=== PATIENT | male | born 1950 | race Caucasian/White ===

== ENCOUNTER 2017-01-28 11:12 | Emergency (ER) | payer OTHER ==
[2017-01-28] VITALS (8 sets, daily range): BP systolic 191–233; BP diastolic 76–108; PULSE 54–60; RESP 17–20; O2SAT 96–100
[2017-01-28] MEDS ORDERED: SODIUM CHLOR 0.9% 1000 ML INJ 1,000 ML IV SCH (11:31)
[2017-01-28] MEDS ORDERED: ONDANSETRON HCL 4 MG/2 ML VIAL IVP ONE (11:45)
[2017-01-28] MEDS ORDERED: MORPHINE SULFATE 4 MG/ML INJ IV PUSH ONE (11:45)
[2017-01-28 11:58] LABS: AUTOMATED NEUTROPHIL # 6.2 TH/MM3 (1.8-7.7); BASOPHIL % 0.6 % (0.0-2.0); EOSINOPHIL % 0.6 % (0.0-4.0); HEMATOCRIT 41.8 % (39.0-51.0); HEMO FLAGS DIFF FINAL; LYMPH % 11.2 % (9.0-44.0); LYMPHOCYTE # 0.8 TH/MM3 (1.0-4.8); MEAN CELL VOLUME 94.8 FL (80.0-100.0); MEAN CORPUSCULAR HEMOGLOBIN 33.2 PG (27.0-34.0); MONO % 5.8 % (0.0-8.0); NEUT % 81.8 % (16.0-70.0); PLATELET COUNT 220 TH/MM3 (150-450); RED BLOOD COUNT 4.41 MIL/MM3 (4.50-5.90); RED CELL DISTRIBUTION WIDTH 14.1 % (11.6-17.2); WHITE BLOOD COUNT 7.6 TH/MM3 (4.0-11.0)
[2017-01-28] MEDS ORDERED: MORPHINE SULFATE 8 MG/ML INJ IV PUSH ONE (12:00)
[2017-01-28 12:06] LABS: APTT (PATIENT) 22.6 SEC (24.3-30.1); PROTHROMBIN TIME - PATIENT 11.2 SEC (9.8-11.6)
--- NOTE | 2017-01-28 12:17 | PD ---
HPI Chief Complaint: Abdominal Pain Time Seen by Provider: 12:12 Travel History International Travel<30 days: No Contact w/Intl Traveler<30days: No Traveled to known affect area: No History of Present Illness HPI 66-year-old male that presents to the ED for evaluation of lower abdominal pain. Patient has had this pain since yesterday. Per patient she has a history of what appears to be diverticulosis and he is concerned he might have diverticulitis. Per patient the pain wasn't too severe until this morning when the pain got really severe 10 out of 10 to the point where he had diaphoresis and was shaking. This is what made him call the ambulance. On his way here patient felt better and his pain now is 5 out of 10. He denies any chest pain or shortness of breath. He said that he's had some nausea and vomiting and yesterday he had some diarrhea but today he has not had a bowel movement. No blood. No recent travel. No falls or injuries. He does have a history of surgeries to his gallbladder both go has appendix. No recent surgeries. No urinary symptoms. Pain stays mainly on the left lower quadrant of the abdomen. PFSH Past Medical History Arthritis: Yes High Cholesterol: Yes Diabetes: Yes (insulin ) Patient Takes Glucophage: No Diminished Hearing: Yes (right ear ) Diverticulitis: Yes GERD: Yes Hypertension: Yes Immunizations Current: Yes Past Surgical History Cholecystectomy: Yes Joint Replacement: Yes (neck, lower back ) Social History Alcohol Use: Yes (socially ) Tobacco Use: No Substance Use: No Allergies-Medications (Allergen,Severity, Reaction): Coded Allergies: No Known Allergies (Unverified , 01/28/17) Reported Meds & Prescriptions Reported Meds & Active Scripts Active Reported Novolog Flexpen Inj (Insulin Aspart) 300 Unit/3 Ml Pen 1 Units SQ Levemir Inj (Insulin Detemir) 1,000 unit/ 10 ML Vial 36 Units SQ HS Do not mix with any other Insulin. Lisinopril 40 Mg Tab 40 Mg PO DAILY Ezetimibe 10 Mg Tab 10 Mg PO DAILY Pantoprazole (Pantoprazole Sodium) 40 Mg Tab 40 Mg PO DAILY Hydrochlorothiazide 25 Mg Tab 25 Mg PO DAILY Zetia (Ezetimibe) 10 Mg Tab 10 Mg PO DAILY Fenofibrate 145 Mg Tab 145 Mg PO DAILY Ropinirole 0.25 Mg Tab 1-2 Tab PO HS Metformin (Metformin HCl) 1,000 Mg Tab 1,000 Mg PO BIDPC With meals Escitalopram (Escitalopram Oxalate) 20 Mg Tab 20 Mg PO DAILY Review of Systems Except as stated in HPI: all other systems reviewed are Neg Physical Exam Narrative GENERAL: SKIN: Warm and dry. HEAD: Atraumatic. Normocephalic. EYES: Pupils equal and round. No scleral icterus. No injection or drainage. ENT: No nasal bleeding or discharge. Mucous membranes pink and moist. Tongue is midline. No uvula deviation. NECK: Trachea midline. No JVD. CARDIOVASCULAR: Regular rate and rhythm. No murmurs, S3, S4. RESPIRATORY: No accessory muscle use. Clear to auscultation. Breath sounds equal bilaterally. GASTROINTESTINAL: Abdomen soft, tender to palpation especially in the left lower quadrant of the abdomen, nondistended. Hepatic and splenic margins not palpable. MUSCULOSKELETAL: Extremities without clubbing, cyanosis, or edema. No obvious deformities. Full range of motion of the upper and lower extremities bilaterally. 2+ pulses bilaterally. NEUROLOGICAL: Awake and alert. No obvious cranial nerve deficits. Motor grossly within normal limits. Five out of 5 muscle strength in the arms and legs. Normal speech. PSYCHIATRIC: Appropriate mood and affect; insight and judgment normal. Data Data Last Documented VS Vital Signs Date Time Temp Pulse Resp B/P Pulse Ox O2 Delivery O2 Flow Rate FiO2 01/28/17 13:00 54 17 191/89 98 Room Air Orders Complete Blood Count With Diff (01/28/17 11:31) Comprehensive Metabolic Panel (01/28/17 11:31) Lipase (01/28/17 11:31) Lactic Acid (01/28/17 11:31) Prothrombin Time / Inr (Pt) (01/28/17 11:31) Act Partial Throm Time (Ptt) (01/28/17 11:31) Urinalysis - C+S If Indicated (01/28/17 11:31) Ct Abd/Pel W Iv Contrast(Rout) (01/28/17 11:31) Iv Access Insert/Monitor (01/28/17 11:31) Ecg Monitoring (01/28/17 11:31) Oximetry (01/28/17 11:31) Ondansetron Inj (Zofran Inj) (01/28/17 11:45) Sodium Chlor 0.9% 1000 Ml Inj (Ns 1000 M (01/28/17 11:31) Morphine Inj (Morphine Inj) (01/28/17 12:00) Clonidine (Catapres) (01/28/17 12:45) Iohexol 350 Inj (Omnipaque 350 Inj) (01/28/17 14:31) Labs Laboratory Tests Test 01/28/17 11:45 White Blood Count 7.6 TH/MM3 Red Blood Count 4.41 MIL/MM3 Hemoglobin 14.7 GM/DL Hematocrit 41.8 % Mean Corpuscular Volume 94.8 FL Mean Corpuscular Hemoglobin 33.2 PG Mean Corpuscular Hemoglobin 35.0 % Concent Red Cell Distribution Width 14.1 % Platelet Count 220 TH/MM3 Mean Platelet Volume 8.5 FL Neutrophils (%) (Auto) 81.8 % Lymphocytes (%) (Auto) 11.2 % Monocytes (%) (Auto) 5.8 % Eosinophils (%) (Auto) 0.6 % Basophils (%) (Auto) 0.6 % Neutrophils # (Auto) 6.2 TH/MM3 Lymphocytes # (Auto) 0.8 TH/MM3 Monocytes # (Auto) 0.4 TH/MM3 Eosinophils # (Auto) 0.0 TH/MM3 Basophils # (Auto) 0.0 TH/MM3 CBC Comment DIFF FINAL Differential Comment Prothrombin Time 11.2 SEC Prothromb Time International 1.0 RATIO Ratio Activated Partial 22.6 SEC Thromboplast Time Sodium Level 138 MEQ/L Potassium Level 3.8 MEQ/L Chloride Level 106 MEQ/L Carbon Dioxide Level 24.2 MEQ/L Anion Gap 8 MEQ/L Blood Urea Nitrogen 17 MG/DL Creatinine 0.99 MG/DL Estimat Glomerular Filtration 76 ML/MIN Rate Random Glucose 312 MG/DL Lactic Acid Level 1.9 mmol/L Calcium Level 9.4 MG/DL Total Bilirubin 0.6 MG/DL Aspartate Amino Transf 41 U/L (AST/SGOT) Alanine Aminotransferase 49 U/L (ALT/SGPT) Alkaline Phosphatase 63 U/L Total Protein 7.2 GM/DL Albumin 3.9 GM/DL Lipase 140 U/L MDM Medical Decision Making Medical Screen Exam Complete: Yes Emergency Medical Condition: Yes Medical Record Reviewed: Yes Interpretation(s) Last Impressions Abdomen/Pelvis CT 01/28/17 1131 Signed Impressions: Service Date/Time: Saturday, January 28, 2017 14:23 - CONCLUSION: 1. Left UVJ stone without any hydronephrosis. 2. Small subcarinal lymph node. Cari Anderson MD CBC & BMP Diagram 01/28/17 11:45 lactic acid WNL LFTs and lipase WNL Differential Diagnosis Diverticulitis versus acute abdomen versus abscess versus kidney stone versus constipation versus gastroenteritis versus colitis Narrative Course 66-year-old male that presents to the ED for evaluation of left lower quadrant abdominal pain. Patient was properly examined and was found to have signs and symptoms concerning for diverticulitis. Labs and imaging were ordered. Patient was given IV fluids and pain medications. Labs and imaging showed what appears to be a 4-5 mm UVJ kidney stone. Patient feels improved. He has had no issues here. Patient has no signs of hydronephrosis or infection. Patient was reassured. This time I recommend outpatient trial with Lortab, Flomax, Zofran. Patient agrees with this plan. Patient happy with care. All questions were answered to the best of my ability. Patient was told that pain should improve as the stone is almost on its way out but he might get worse as well as the stone passes to the bladder. See ED for worsening symptoms. Follow with PCP. My attending Dr. Zayas agrees with plan. Diagnosis Primary Impression: Kidney stone on left side Patient Instructions: General Instructions, Narcotic given in the ED Additional Instructions: Take medications as prescribed. Follow-up with PCP. See ED for any worsening symptoms. Do not drink or drive while taking pain medication. Apply ice or heat as needed for pain Med/Other Pt SpecificInfo: Prescription(s) given Scripts Ondansetron (Zofran)4 Mg Tab4 Mg PO Q6HR PRN (NAUSEA OR VOMITING) #15 TAB Ref 0 Prov:Desirae Zayas DO 01/28/17 Hydrocodone-Acetaminophen (Lortab)5-325 Mg Tab1 Tab PO Q6H PRN (PAIN) #15 TAB Ref 0 Prov:Desirae Zayas DO 01/28/17 Tamsulosin (Flomax)0.4 Mg Cap0.4 Mg PO HS #14 CAP Ref 0 Prov:Desirae Zayas DO 01/28/17 Disposition: 01 DISCHARGE HOME Condition: Stable Jad Green Jan 28, 2017 12:17
[2017-01-28 12:27] LABS: ANION GAP 8 MEQ/L (5-15); AST (GOT) 41 U/L (15-37); BICARBONATE 24.2 MEQ/L (21.0-32.0); BLOOD UREA NITROGEN 17 MG/DL (7-18); CHLORIDE 106 MEQ/L (98-107); GLOMERULAR FILTRATION RATE 76 ML/MIN (>89); POTASSIUM 3.8 MEQ/L (3.5-5.1); SODIUM (NA) 138 MEQ/L (136-145)
[2017-01-28] MEDS ORDERED: FENO145T2 PO (12:28)
[2017-01-28] MEDS ORDERED: PANT40TA3 PO (12:28)
[2017-01-28] MEDS ORDERED: ZETI10TA5 PO (12:28)
[2017-01-28] MEDS ORDERED: NOVOINJ3 SQ (12:28)
[2017-01-28] MEDS ORDERED: EZET1TAB8 PO (12:28)
[2017-01-28] MEDS ORDERED: ESCI20TA PO (12:28)
[2017-01-28] MEDS ORDERED: LISI40TA PO (12:28)
[2017-01-28] MEDS ORDERED: HYDR25TA5 PO (12:28)
[2017-01-28] MEDS ORDERED: ROPI0.25 PO (12:28)
[2017-01-28] MEDS ORDERED: LEVEMIR SQ (12:28)
[2017-01-28] MEDS ORDERED: METF1000 PO (12:28)
[2017-01-28 12:30] LABS: ALKALINE PHOSPHATASE 63 U/L (45-117); ALT (GPT) 49 U/L (12-78); TOTAL BILIRUBIN ADULT 0.6 MG/DL (0.2-1.0)
[2017-01-28] MEDS ORDERED: cloNIDine HCL 0.1 MG TAB PO ONE (12:45)
[2017-01-28] MEDS ORDERED: IOHEXOL 350 MG/ML 10 ML VIAL (for RAD DIAG) IV ONE (14:31)
--- NOTE | 2017-01-28 15:05 | RADRPT ---
EXAM DATE/TIME: 01/28/2017 14:23 [facility] COMPARISON: No previous studies available for comparison. INDICATIONS : Left lower abdomen pain today. IV CONTRAST: 97 cc Omnipaque 350 (iohexol) IV ORAL CONTRAST: No oral contrast ingested. RADIATION DOSE: 14.83 CTDIvol (mGy) MEDICAL HISTORY : Hypertension. diabetes SURGICAL HISTORY : Cholecystectomy. ENCOUNTER: Initial ACUITY: 1 day PAIN SCALE: 7/10 LOCATION: Left lower quadrant TECHNIQUE: Volumetric scanning of the abdomen and pelvis was performed. Using automated exposure control and adjustment of the mA and/or kV according to patient size, radiation dose was kept as low as reasonably achievable to obtain optimal diagnostic quality images. DICOM format image data is av ailable electronically for review and comparison. FINDINGS: CT Abdomen: The liver, spleen, pancreas, kidneys, adrenals are unremarkable. There is no evidence for any appreciable, free fluid, or bowel obstruction. There are old healed rib fractures in the left c hest. Approximate 1.5 cm subcarinal lymph node is seen. CT pelvis: There is no evidence for mass, abscess formation, or any significant adenopathy within the pelvis. The prostate gland is inhomogeneous and measures 4.4 x 4.8 cm in AP and transverse diameters and nonspecific. There are post surgical and degenerative changes of lower lumbar sacral spine. Ther e is an approximate 4-5 mm stone in the left UVJ without any hydronephrosis. CONCLUSION: 1. Left UVJ stone without any hydronephrosis. 2. Small subcarinal lymph node. Cari Anderson MD on January 28, 2017 at 15:00 Board Certified Radiologist. This report was verified electronically.
[2017-01-28] MEDS ORDERED: ZOFR4TAB PO (15:24)
[2017-01-28] MEDS ORDERED: TAMS5CAP PO (15:24)
[2017-01-28] MEDS ORDERED: HYDR-3533 PO (15:24)
== END 2017-01-28 15:53 | disposition home or self-care (01) ==
LOC: NEPE 11:12
DX: N20.0 Calculus of kidney (principal); R11.2 Nausea with vomiting, unspecified; I10 Essential (primary) hypertension; E11.9 Type 2 diabetes mellitus without complications; E78.00 Pure hypercholesterolemia, unspecified; H91.91 Unspecified hearing loss, right ear; Z79.4 Long term (current) use of insulin; Z87.19 Personal history of other diseases of the digestive system; Z87.39 Personal history of other diseases of the musculoskeletal system and connective tissue
CPT/HCPCS: 74177; 80053; 83605; 83690; 85025; 85610; 85730; 96361; 96374; 96375; 99285; J2270; J2405; J7030; Q9967